=== PATIENT | female | born 1985 | race Caucasian/White ===

== ENCOUNTER 2020-01-29 19:04 | Emergency (ER) | payer OTHER ==
--- NOTE | 2020-01-29 19:18 | PDOC ---
Rapid Medical Evaluation Chief Complaint: Blood Pressure Problem Time Seen by Provider: 01/29/20 19:13 Medical Evaluation: Allergies Allergy/AdvReac Type Severity Reaction Status Date / Time No Known Drug Allergies Allergy Verified 12/03/19 09:23 01/29/20 19:15 34 YEAR OLD FEMALe sent by Dr. marquez to r/o ecclampsia. patient reports slight headache since yesterday. patient is currently on nifedipine. denies dizziness, nausea/ vomiting. Patient gave December 02 Last Vital Signs Temp Pulse Resp BP Pulse Ox 98.1 F 103 H 20 129/85 99 01/29/20 19:14 01/29/20 19:14 01/29/20 19:14 01/29/20 19:14 01/29/20 19:14 PE: patient alert ox3 A: headache P: ua, urine . 01/29/20 19:19 Discharge Disposition - Diagnosis Headache Qualifiers: Headache type: unspecified Headache chronicity pattern: unspecified pattern Intractability: not intractable Qualified Code(s): R51 - Headache - Referrals Referrals: Lawrence Maruqez MD [Primary Care Provider] - - Patient Instructions - Post Discharge Activity
[2020-01-29 19:19] VITALS: TEMP 98.1; BMI 26.8
[2020-01-29] MEDS ORDERED: ACETAMINOPHEN 325 MG TABLET (FP) PO ONE (20:59)
--- NOTE | 2020-01-29 21:02 | PDOC ---
History of Present Illness - General Chief Complaint: Headache Stated Complaint: SENT BY DOCTOR Time Seen by Provider: 01/29/20 19:13 History Source: Patient Exam Limitations: No Limitations - History of Present Illness Initial Comments: 01/29/20 20:58 34-year-old female presents to ED for evaluation of frontal throbbing headache intermittently since yesterday. Patient states last week went to her doctors for evaluation and had blood work done. Patient states was then told to come back today to review the blood work and was told to go to the ER for further evaluation because her labs were off. Patient unable to recall which lab was wrong and has no other complaints at this time Patient states has had no visual changes, nausea, chest pain, shortness of breath but decided come to the ER for further evaluation of the headache. Patient states she is currently on nifedipine which she takes on a daily basis x 10 years Timing/Duration: reports: 24 hours Severity: Yes: mild Associated Symptoms: reports: denies symptoms Past History - Travel History Traveled outside of the country in the last 30 days: No Close contact w/someone who was outside of country & ill: No - Medical History Allergies/Adverse Reactions: Allergies Allergy/AdvReac Type Severity Reaction Status Date / Time No Known Drug Allergies Allergy Verified 12/03/19 09:23 Home Medications: Ambulatory Orders Aspirin [ASA -] 81 mg PO DAILY 12/03/19 Breast Pump 1 each MC 5XD 30 Days #1 each 12/03/19 Ibuprofen 600 mg PO Q6H PRN #30 tablet 12/03/19 Nifedipine ER [Procardia Xl -] 90 mg PO DAILY 12/03/19 Nifedipine ER [Procardia Xl -] 90 mg PO DAILY #30 tab.er.24 12/03/19 Vitamins (Sjr) - 1 tab PO DAILY 12/03/19 Anemia: No Asthma: No Cancer: No Cardiac Disorders: No CVA: No COPD: No CHF: No Dementia: No Diabetes: No GI Disorders: No Disorders: No HTN: Yes (chronic) Hypercholesterolemia: No Liver Disease: No Seizures: No Thyroid Disease: No - Surgical History Abdominal Surgery: No Appendectomy: No Cardiac Surgery: No Cholecystectomy: Yes Lung Surgery: No Neurologic Surgery: No Orthopedic Surgery: No - Immunization History Immunization Up to Date: Yes - Psycho-Social/Smoking History Patient Lives Alone: No Lives with/in: spouse/SO Smoking History: Never smoked Have you smoked in the past 12 months: No - Substance Abuse Hx (Audit-C & DAST Scrn) How often the patient has a drink containing alcohol: Never Score: In Men: 4 or > Positive; In Women: 3 or > Positive: 0 Screen Result (Pos requires Nsg. Audit-10AR): Negative Review of Systems - Review of Systems Able to Perform ROS?: Yes Constitutional: No: Symptoms Reported HEENTM: No: Symptoms Reported Respiratory: No: Symptoms reported Cardiac (ROS): No: Symptoms Reported ABD/GI: No: Symptoms Reported : No: Symptoms Reported Musculoskeletal: No: Symptoms Reported Integumentary: No: Symptoms Reported Neurological: Yes: Headache Hematologic/Lymphatic: No: Symptoms Reported *Physical Exam - Vital Signs Last Vital Signs Temp Pulse Resp BP Pulse Ox 98.1 F 103 H 20 129/85 99 01/29/20 19:14 01/29/20 19:14 01/29/20 19:14 01/29/20 19:14 01/29/20 19:14 - Physical Exam General Appearance: Yes: Nourished, Appropriately Dressed. No: Apparent Distress HEENT: positive: EOMI, AMANDEEP, TMs Normal, Pharynx Normal. negative: Pale Conjunctivae Neck: positive: Normal Thyroid, Supple Respiratory/Chest: positive: Lungs Clear, Normal Breath Sounds. negative: Respiratory Distress, Accessory Muscle Use Cardiovascular: positive: Regular Rhythm, Regular Rate. negative: Murmur Gastrointestinal/Abdominal: positive: Soft. negative: Tenderness Extremity: positive: Pedal Edema (trace matti) Integumentary: positive: Normal Color, Warm, Moist Neurologic: positive: Normal Mood/Affect, Motor Strength 5/5 (ambulatory) ED Treatment Course - LABORATORY CBC & Chemistry Diagram: 01/29/20 22:30 01/29/20 22:30 Medical Decision Making - Medical Decision Making 01/29/20 21:01 Chief complaint: Intermittent headache to the frontal area which describes a throbbing sensation since yesterday. Patient took no medication and decided come to the ER since she is currently on nifedipine for the past 10 years secondary to hypertension and was told to go to the ER today since her labs were abnormal. Patient unable to recallPatient unable to recall which lab was wrong and has no other complaints at this time Exam: Patient with trace edema matti and with 4 out of 10 headache. Plan: urinalysis, urine and Tylenol ordered Discharge - Discharge Information Problems reviewed: Yes Clinical Impression/Diagnosis: Headache Qualifiers: Headache type: unspecified Headache chronicity pattern: unspecified pattern Intractability: not intractable Qualified Code(s): R51 - Headache Condition: Fair Disposition: HOME - Follow up/Referral Referrals: Lawrence Marquez MD [Primary Care Provider] - - Patient Discharge Instructions Patient Printed Discharge Instructions: DI for Headache, Liver Function Tests Additional Instructions: You were evaluated in the emergency department for your headache and abnormal lab values. Your ALT, AST and alk phosphatase were noted to be elevated. Please follow up with your primary medical doctor within 1 week after discharge. Please follow up with Dr. Marquez within 72 hours. Please return to the emergency department if you have worsening symptoms or new concerning symptoms. Thank you. - Post Discharge Activity Work/Back to School Note: Back to Work
[2020-01-29] MEDS ORDERED: ACETAMINOPHEN 325 MG TABLET (FP) ONE (21:09)
[2020-01-29 22:43] LABS: BASO % 0.9 % (0-2.0); EOS % 2.6 % (0-4.5); HEMATOCRIT 36.1 % (32.4-45.2); HEMOGLOBIN 12.1 GM/dL (10.7-15.3); LYMPH % 42.6 % (8-40); MCHC 33.5 g/dl (32.0-36.0); MEAN CELL VOLUME 86.5 fl (80-96); MEAN PLT VOLUME 8.5 fl (7.5-11.1); MONO % 6.1 % (3.8-10.2); NEUT % 47.8 % (42.8-82.8); PLATELET COUNT 247 K/MM3 (134-434); RBC 4.17 M/mm3 (3.60-5.2); WHITE BLOOD COUNT 5.7 K/mm3 (4.0-10.0)
[2020-01-29 22:50] LABS: EPI CELLS 21 /uL (0-25.1); HCG,QUALITATIVE URINE Negative; HYALINE CASTS 4 /uL (0-3.1); PH,URINE 5.5 (5.0-8.0); URINE APPEARANCE CLEAR; URINE BACTERIA 852 /uL (0-1359); URINE BILIRUBIN NEGATIVE (NEGATIVE); URINE COLOR YELLOW; URINE GLUCOSE (UA) NEGATIVE (NEGATIVE); URINE KETONE TRACE (NEGATIVE); URINE LEUK ESTERASE TRACE (NEGATIVE); URINE NITRITE NEGATIVE (NEGATIVE); URINE PROTEIN TRACE (NEGATIVE); URINE RBC 0 /uL (0-23.9); URINE UROBILINOGEN 0.2 mg/dL (0.2-1.0); URINE WBC 26 /uL (0-25.8)
[2020-01-29 23:11] LABS: ALBUMIN 4.1 g/dl (3.4-5.0); BILIRUBIN,TOTAL 0.2 mg/dL (0.2-1); BLOOD UREA NITROGEN 16.4 mg/dL (7-18); CALCIUM 9.5 mg/dL (8.5-10.1); CREATININE 0.7 mg/dL (0.55-1.3); POTASSIUM 3.6 mmol/L (3.5-5.1)
--- NOTE | 2020-01-29 23:56 | PDOC ---
*Physical Exam - Vital Signs Last Vital Signs Temp Pulse Resp BP Pulse Ox 98.1 F 103 H 20 129/85 99 01/29/20 19:14 01/29/20 19:14 01/29/20 19:14 01/29/20 19:14 01/29/20 19:14 - Physical Exam 01/29/20 23:49 Patient was signed out to me by Piedad. <DonnyFredy - Last Filed: 01/29/20 23:56> - Vital Signs Last Vital Signs Temp Pulse Resp BP Pulse Ox 98.1 F 86 18 120/80 99 01/29/20 19:14 01/30/20 00:36 01/30/20 00:36 01/30/20 00:36 01/30/20 00:36 <Aimee Mccarthy - Last Filed: 01/30/20 19:39> ED Treatment Course - LABORATORY CBC & Chemistry Diagram: 01/29/20 22:30 01/29/20 22:30 - ADDITIONAL ORDERS Additional order review: Laboratory Results 01/29/20 01/29/20 22:30 21:02 Sodium 141 Potassium 3.6 Chloride 108 H Carbon Dioxide 25 Anion Gap 8 BUN 16.4 Creatinine 0.7 Est GFR (CKD-EPI)AfAm 131.02 Est GFR (CKD-EPI)NonAf 113.04 Random Glucose 93 Calcium 9.5 Total Bilirubin 0.2 AST 43 H ALT 80 H Alkaline Phosphatase 164 H Total Protein 8.0 Albumin 4.1 Urine Color Yellow Urine Appearance Clear Urine pH 5.5 D Ur Specific [place] 1.024 Urine Protein Trace Urine Glucose (UA) Negative Urine Ketones Trace H Urine Blood Negative Urine Nitrite Negative Urine Bilirubin Negative Urine Urobilinogen 0.2 Ur Leukocyte Esterase Trace Urine WBC (Auto) 26 Urine RBC (Auto) 0 Urine Casts (Auto) 4 U Epithel Cells (Auto) 21 Urine Bacteria (Auto) 852 Urine HCG, Qual Negative 01/29/20 22:30 RBC 4.17 MCV 86.5 MCHC 33.5 RDW 14.0 MPV 8.5 Neutrophils % 47.8 D Lymphocytes % 42.6 H D Monocytes % 6.1 Eosinophils % 2.6 D Basophils % 0.9 - Medications Given in the ED: ED Medications Discontinued Medications Generic Name Dose Route Start Last Admin Trade Name Freq PRN Reason Stop Dose Admin Acetaminophen 650 mg 01/29/20 20:59 01/29/20 21:13 Tylenol - PO 01/29/20 21:00 650 mg ONCE ONE Administration <DonnyFredy - Last Filed: 01/29/20 23:56> - LABORATORY CBC & Chemistry Diagram: 01/29/20 22:30 01/29/20 22:30 - ADDITIONAL ORDERS Additional order review: 01/29/20 22:30 RBC 4.17 MCV 86.5 MCHC 33.5 RDW 14.0 MPV 8.5 Neutrophils % 47.8 D Lymphocytes % 42.6 H D Monocytes % 6.1 Eosinophils % 2.6 D Basophils % 0.9 - Medications Given in the ED: ED Medications Discontinued Medications Generic Name Dose Route Start Last Admin Trade Name Dhruv PRN Reason Stop Dose Admin Acetaminophen 650 mg 01/29/20 20:59 01/29/20 21:13 Tylenol - PO 01/29/20 21:00 650 mg ONCE ONE Administration <Aimee Mccarthy - Last Filed: 01/30/20 19:39> Medical Decision Making - Medical Decision Making 01/29/20 23:49 Patient was re-assessed. Patient denies having headache and no pain. The values of her labs were relayed to her. She denies having abdominal pain and no abdom inal tenderness on examination. A call was placed to Dr. Acosta'lokesh to relay the results. He was unavailable per his answering service to take the call. Patient was discharged with explicit instruction to follow up with him within 72 hours after discharge for follow up care and management. <Fredy Hines - Last Filed: 01/29/20 23:56> Discharge - Discharge Information Problems reviewed: Yes - Admission No <Fredy Hines - Last Filed: 01/29/20 23:56> <Aimee Mccarthy - Last Filed: 01/30/20 19:39> - Discharge Information Clinical Impression/Diagnosis: Headache Qualifiers: Headache type: unspecified Headache chronicity pattern: unspecified pattern Intractability: not intractable Qualified Code(s): R51 - Headache Condition: Fair Disposition: HOME - Follow up/Referral Referrals: Lawrence Marquez MD [Primary Care Provider] - - Patient Discharge Instructions Patient Printed Discharge Instructions: DI for Headache, Liver Function Tests Additional Instructions: You were evaluated in the emergency department for your headache and abnormal lab values. Your ALT, AST and alk phosphatase were noted to be elevated. Please follow up with your primary medical doctor within 1 week after discharge. Please follow up with Dr. Marquez within 72 hours. Please return to the emergency department if you have worsening symptoms or new concerning symptoms. Thank you. - Post Discharge Activity Work/Back to School Note: Back to Work
[2020-01-30 00:39] VITALS: BP 120/80; PULSE 86
== END 2020-01-30 00:41 | disposition home or self-care (01) ==
LOC: JER 19:04
DX: R51 Headache (principal)
CPT/HCPCS: 36415; 80053; 81003; 84703; 85025; 99284-25

== ENCOUNTER 2020-04-03 04:35 | Day surgery (SDC) | payer OTHER ==
[2020-04-01 17:47] VITALS: BMI 26.6
--- NOTE | 2020-04-03 10:48 | HP ---
History & Physical Update - Physical Physical: No Change - Assessment Assessment: No Change - Plan Plan: No Change (Patient counseled regardings risks and complications of procedure. All questions answered and informed consent obtained. Surgery will proceed as scheduled)
[2020-04-03] MEDS ORDERED: fentaNYL CITRATE 250 MCG/5 ML VIAL ONE (10:51)
[2020-04-03] MEDS ORDERED: LIDOCAINE HCL/PF 2% SDV 5ML VIAL ONE (10:51)
[2020-04-03] MEDS ORDERED: ROCURONIUM BROMIDE 50 MG/5 ML SYRINGE ONE (10:51)
[2020-04-03] MEDS ORDERED: MIDAZOLAM HCL 2 MG/2 ML SINGLE DOSE VIAL ONE (10:51)
[2020-04-03] MEDS ORDERED: DEXAMETHASONE SOD PHOSPHATE 4 MG/1 ML VIAL ONE (10:51)
[2020-04-03] MEDS ORDERED: PROPOFOL 20 ML ONE (10:51)
[2020-04-03] MEDS ORDERED: BUPIVACAINE HCL/PF 0.5% (5 MG/ML) 30 ML VIAL IJ ONE (11:45)
[2020-04-03] MEDS ORDERED: NEOSTIGMINE METHYLSULFATE 0.5 MG/ML - 10 ML MDV ONE (12:12)
[2020-04-03] MEDS ORDERED: KETOROLAC TROMETHAMINE 30 MG/1 ML VIAL ONE (12:13)
[2020-04-03] MEDS ORDERED: GLYCOPYRROLATE 0.2 MG/1 ML VIAL ONE (12:13)
[2020-04-03] MEDS ORDERED: ONDANSETRON 4 MG/2 ML VIAL IVPUSH PRN (12:22)
[2020-04-03] MEDS ORDERED: oxyCODONE HCL 5 MG TABLET PO PRN ×2 (12:22)
[2020-04-03] MEDS ORDERED: LACTATED RINGERS SOLUTION 1,000 ML IV SCH (12:30)
--- NOTE | 2020-04-03 12:31 | OP ---
Operative Note - Note: Operative Date: 04/03/20 (25599) Pre-Operative Diagnosis: multiparity Operation: Laparoscopic bilateral salpingectomy Post-Operative Diagnosis: Same as Pre-op Surgeon: Lawrence Marquez Anesthesia: General Specimens Removed: bilateral tubes Estimated Blood Loss (mls): 15 (minimal) Drains, Volume Out (mls): 600 (clear urine) Fluid Volume Replaced (mls): 700 Operative Report Dictated: Yes
--- NOTE | 2020-04-03 12:36 | SURG ---
Surgery Sterile Supervisor Note Sterile Supervisor: Hitesh Ng PA-C Date of Service: 04/03/20 Diagnosis: multiparity, elective sterilization Procedure: Laparoscopic bilateral salpingectomy I was present for the entirety of the operative procedure. For further detail, please refer to operative report. Visit type - Case Type Case Type: Scheduled - New patient This patient is new to me today: Yes Date on this admission: 04/03/20
--- NOTE | 2020-04-03 13:09 | OP ---
DATE OF OPERATION: 04/03/2020 PREOPERATIVE DIAGNOSIS: A 35-year-old multiparous female, desires sterilization. Appropriately counseled. POSTOPERATIVE DIAGNOSIS: A 35-year-old multiparous female, desires sterilization. Appropriately counseled. PROCEDURE: Laparoscopic bilateral salpingectomy. SURGEON: Saranya Avendano MD SALES DEVELOPMENT EXECUTIVE: UGO Pan ANESTHESIA; General. ESTIMATED BLOOD LOSS FOR THE PROCEDURE: Minimal. IV FLUIDS: 1700 mL. URINE OUTPUT: 600 mL of clear urine. COMPLICATIONS: None. FINDINGS: Moderate amount of subcutaneous abdominal adipose tissue, slightly preperitoneal adipose tissue at the point of entry. No abnormal findings intraabdominally. Pelvic evaluation revealed normal uterus and bilateral tubes and ovaries with a few thin adhesions of the ovaries to the tubes bilaterally. Surgical clip encountered on the periphery of the left ovary, consistent with prior cystectomy. PROCEDURE: The patient was taken to the operating room, where anesthesia was found to be adequate. She was then prepped and draped in the normal sterile fashion. Appropriate timeout took place. Attention was redirected to the vaginal area, where a HUMI manipulator was advanced through the os to a depth of 8 cm and a Maldonado catheter was placed without difficulty. No active bleeding noted. Attention then was redirected to the anterior abdominal wall, where an infraumbilical incision horizontally, following prior scar tissue, was made with the Bovie and carried to underlying fascia bluntly. The fascia was elevated with Escobar clamps and transected. The underlying peritoneum was elevated with hemostats and transected sharply and bluntly. Appropriate placement was confirmed via Amanda trocar and insufflating media with the scope. Inspection took place and no active bleeding from the entry point and no evidence of trauma on the underneath . Global inspection of the intraabdominal cavity revealed no abnormal findings. Attention then was redirected to the pelvic area. A right lower quadrant trocar was placed under constant visualization, followed by a left lower quadrant one without difficulty. The uterus was elevated and the left fallopian tube was followed to its fimbriated end. Findings as noted above. The tube was elevated and transected with the LigaSure instrument without difficulty. No active bleeding from the surgical stump. Attention then was redirected to the contralateral fallopian tube, which was underwent the exact same procedure, and it was elevated away from any viscera. Surgical stump was hemostatically stable. The scope was switched to the left lower quadrant port and the fallopian tubes were removed individually through the infraumbilical port. The laparoscope was replaced through the infraumbilical port and secondary inspection revealed no abnormal findings. The right lower quadrant port was removed under constant visualization, followed by the left lower quadrant one. The scope was removed. All insufflating media was evacuated from the abdomen. The infraumbilical fascial incision was reapproximated by tying the previously placed 0 Vicryl anchoring stitches. The defect was completely obliterated and confirmed by palpation by the surgeon. Subcutaneous tissues were reapproximated with an interrupted 0 Vicryl and the skin incisions were reapproximated with subcuticular 4-0 Monocryl. Excellent hemostasis noted. Attention then was redirected to the vaginal area, where the HUMI manipulator and the hemostats were removed, and no active bleeding noted. The patient, in stable condition, is going to the recovery room. Instrument count was reported as correct x2 by the staff. SARANYA AVENDANO MD [id number]
[2020-04-03 15:59] VITALS: BP 126/91; PULSE 73; TEMP 98.6
--- NOTE | 2020-04-07 18:43 | PATH ---
Surgical Pathology Report Patient Name: ZORAN MENDOZA Med. Rec. #: [id number] /Age/Gender: 1985 (Age: 35) / F Account: [id number] Location: [facility] Taken: 04/03/2020 Received: 04/03/2020 Reported: 04/07/2020 Physicians: Lawrence Marquez MD Specimen(s) Received RIGHT AND LEFT FALLOPIAN TUBES Clinical History Encounter for sterilization Final Diagnosis FALLOPIAN TUBES, RIGHT AND LEFT, LAPAROSCOPIC BILATERAL SALPINGECTOMY: SHORTER FALLOPIAN TUBE WITH PARATUBAL CYST AND FOCAL MILD CHRONIC SALPINGITIS (INCLUDING FIMBRIATED END AND FULL LUMINAL PORTION). UNREMARKABLE LONGER FALLOPIAN TUBE (INCLUDING FIMBRIATED END AND FULL LUMINAL PORTION). Electronically Signed Lisa Rodríguez M.D. Gross Description Received in formalin labeled "right and left fallopian tube," are 2 undesignated, fimbriated fallopian tubes measuring 6.0 and 6.5 cm in length. The shorter fallopian tube displays a 0.5 cm in greatest dimension paratubal cyst attached to the fimbria. Sectioning of both fallopian tubes reveals unremarkable lumen. Survey Compiler sections are submitted in 4 cassettes as follows: 1-shorter fallopian tube fimbria with paratubal cyst; 2-cross sections of shorter fallopian tube; 3-longer fallopian tube fimbria; 3-[id number] of longer fallopian tube. DL/04/04/2020 saudi04/04/2020
== END 2020-04-03 16:25 | disposition home or self-care (01) ==
LOC: JASU-SURG 04:35
PROVIDERS: ATTEND Student in an Organized Health Care Education/Training Program
PROC: 0U574ZZ Destruction of Bilateral Fallopian Tubes, Percutaneous Endoscopic Approach (ICD-10-PCS; principal; 2020-04-03 11:00)
DX: Z64.1 Problems related to multiparity (principal); Z30.2 Encounter for sterilization
CPT/HCPCS: 84703; 88302-TC; 94760

== ENCOUNTER 2023-06-17 00:02 | Emergency (ER) | payer OTHER ==
[2023-06-17 00:16] VITALS: BMI 28.7
[2023-06-17] MEDS ORDERED: ONDANSETRON 4 MG/2 ML VIAL IVPUSH ONE (01:14)
[2023-06-17] MEDS ORDERED: SODIUM CHLORIDE 0.9% 500 ML INFUS.BAG IV ONE (01:14)
[2023-06-17] MEDS ORDERED: ACETAMINOPHEN 1000 MG/100 ML BAG IVPB ONE (01:14)
[2023-06-17] MEDS ORDERED: ONDANSETRON 4 MG/2 ML VIAL ONE (01:43)
[2023-06-17] MEDS ORDERED: ACETAMINOPHEN INJECTION 100 ML IVPB ONE (01:43)
[2023-06-17 01:56] LABS: BASO % 0.4 % (0-2.0); EOS % 2.4 % (0-4.5); HEMATOCRIT 40.9 % (32.4-45.2); HEMOGLOBIN 13.8 GM/dL (10.7-15.3); LYMPH % 7.2 % (8-40); MCH 30.4 pg (25.7-33.7); MCHC 33.7 g/dl (32.0-36.0); MEAN CELL VOLUME 90.1 fl (80-96); MEAN PLT VOLUME 8.6 fl (7.5-11.1); MONO % 3.2 % (3.8-10.2); NEUT % 86.8 % (42.8-82.8); PLATELET COUNT 221 10^3/uL (134-434); RBC 4.54 M/mm3 (3.60-5.2)
[2023-06-17 02:09] LABS: POTASSIUM 3.5 mmol/L (3.5-5.1)
[2023-06-17 02:11] LABS: CALCIUM 9.5 mg/dL (8.5-10.1)
[2023-06-17 02:12] LABS: ALBUMIN 4.4 g/dl (3.4-5.0); BLOOD UREA NITROGEN 11.7 mg/dL (7-18)
[2023-06-17 02:15] LABS: CREATININE 0.8 mg/dL (0.55-1.3)
[2023-06-17 02:16] LABS: BILIRUBIN,TOTAL 0.5 mg/dL (0.2-1); TOT PROT 8.6 g/dl (6.4-8.2)
[2023-06-17 02:30] LABS: INR 1.09 (0.83-1.09); PROTHROMBIN TIME (PATIENT) 12.6 SEC (9.7-13.0)
[2023-06-17 03:35] VITALS: BP 144/98; PULSE 103; RESP 20; TEMP 99.9
[2023-06-17] MEDS ORDERED: IBUPROFEN 400 MG TABLET (FP) PO ONE ×2 (03:43→03:49)
== END 2023-06-17 03:58 | disposition home or self-care (01) ==
LOC: JER 00:02
PROC: 3E033GC Introduction of Other Therapeutic Substance into Peripheral Vein, Percutaneous Approach (ICD-10-PCS; principal; 2023-06-17)
PROC: 3E033NZ Introduction of Analgesics, Hypnotics, Sedatives into Peripheral Vein, Percutaneous Approach (ICD-10-PCS; 2023-06-17)
DX: R05.9 Cough, unspecified (principal); R06.02 Shortness of breath; R07.9 Chest pain, unspecified; R11.2 Nausea with vomiting, unspecified; J10.1 Influenza due to other identified influenza virus with other respiratory manifestations; Z20.822 Contact with and (suspected) exposure to COVID-19
CPT/HCPCS: 0241U-QW; 36415; 71045-TC-FY; 80053; 83605; 84484; 85025; 85610; 85730; 87040; 93005; 93010; 99285-25